=== PATIENT | female | born 1940 | race Caucasian/White ===

== ENCOUNTER → 2019-10-23 | Outpatient (CLI) | payer MEDICARE ==
[2019-10-23 11:14] LABS: Appearance,Urine Clear (Clear); Bilirubin,Urine Negative (Negative); Blood,Urine Negative (Negative); Color,Urine Yellow; Glucose,Urine (UA) Negative (Negative); Hyaline Casts,Urine 34 /lpf (0-2); Ketones,Urine Negative (Negative); Leukocyte Esterase,Urine Moderate (Negative); Mucus,Urine Many /hpf; Nitrite,Urine Negative (Negative); Protein,Urine Trace (Negative); RBC,Urine 2 /hpf (0-5); Specific Gravity,Urine 1.018 (1.001-1.035); Squamous Epithelial Cell,Urine 1 /hpf (0-4); WBC,Urine 9 /hpf (0-5)
[2019-10-23 11:46] LABS: HCT 40.4 % (34.0-46.0); MCH 29.4 pg (25.0-35.0); MCHC 32.1 g/dL (31.0-37.0); MCV 91.7 fL (80.0-100.0); Mean Platelet Volume 8.7; Platelet Count 276 k/uL (150-450); RBC 4.41 m/uL (3.80-5.40); RDW 12.7 % (11.5-15.5); WBC 5.8 k/uL (3.8-10.6)
[2019-10-23 11:52] LABS: Partial Thromboplastin Time 22.9 sec (22.0-30.0); Prothrombin Time 9.9 sec (9.0-12.0)
[2019-10-23 11:55] LABS: Albumin 4.2 g/dL (3.5-5.0); Calcium 9.5 mg/dL (8.4-10.2); Potassium 4.4 mmol/L (3.5-5.1); Total Bilirubin 0.8 mg/dL (0.2-1.3); Total Protein 7.1 g/dL (6.3-8.2)
== END | disposition home or self-care (01) ==
LOC: LABWHC1 09:54
PROVIDERS: ATTEND Orthopaedic Surgery Sports Medicine
DX: Z01.812 Encounter for preprocedural laboratory examination (principal); Z01.818 Encounter for other preprocedural examination
CPT/HCPCS: 36415; 80053; 81001; 85027; 85610; 85730; 87070

== ENCOUNTER 2019-11-06 07:37 | Day surgery (SDC) | payer MEDICARE ==
[2019-10-30 11:06] VITALS: BMI 28.6
[~2019-11-06 07:37] MED LIST: ACETAMINOPHEN TAB 500 MG TAB PO ONE; DEXAMETHASONE SOD PHOSPHATE 10 MG/ML 1 ML VIAL IV ONE; GABAPENTIN 300 MG CAP PO ONE; HYDROmorphone 0.5 MG/0.5 ML SYRINGE IVP PRN; MELOXICAM 7.5 MG TAB PO ONE; MIDAZOLAM 2 MG/2 ML VIAL IV PRN; ONDANSETRON 4 MG/2 ML VIAL IVP ONE; ROPIVACAINE 246.25 MG, EPINEPHrine 0.5 MG, KETOROLAC 30 MG, cloNIDine HCL/PF 80 MCG, WA... MISCELLANE ONE; TRANEXAMIC ACID 1,000 MG in SODIUM CHLORIDE 0.9% 100 ML IVPB ONE
[2019-11-06] MEDS ORDERED: LIDOCAINE 1% (10MG/ML) FOR IV START INTRADERMA ONE (08:10)
[2019-11-06] MEDS: LACTATED RINGERS 1,000 ML IV SCH ×4 (08:10→23:39)
[2019-11-06] MEDS ORDERED: MIDAZOLAM 2 MG/2 ML VIAL IVP ONE (08:19)
[2019-11-06] MEDS ORDERED: TRANEXAMIC ACID 1,000 MG/10 ML VIAL ONE (09:13)
[2019-11-06] MEDS ORDERED: LIDOCAINE 1% INJ 10MG/ML (20 ML MDV) ONE (09:13)
[2019-11-06] MEDS ORDERED: SUCCINYLCHOLINE CHLORIDE 100 MG/5 ML SYR IV ONE (09:13)
[2019-11-06] MEDS ORDERED: HYDROmorphone (PF) 1 MG/ML ONE (09:13)
[2019-11-06] MEDS ORDERED: SODIUM CHLORIDE 0.9% 100 ML BAG ONE (09:13)
[2019-11-06] MEDS ORDERED: ROPIVACAINE 5 MG/ML 30 ML VIAL ONE (09:13)
[2019-11-06] MEDS ORDERED: PROPOFOL 10 MG/ML 20 ML VIAL IV ONE (09:13)
[2019-11-06] MEDS ORDERED: DEXAMETHASONE SOD PHOSPHATE 4 MG/ML 1 ML VIAL ONE (09:13)
[2019-11-06] MEDS ORDERED: MIDAZOLAM 2 MG/2 ML VIAL ONE (09:13)
[2019-11-06] MEDS ORDERED: fentaNYL (PF) 50 MCG/ML 2 ML AMP ONE (09:13)
[2019-11-06] MEDS ORDERED: ceFAZolin 3,000 MG in SODIUM CHLORIDE 0.9% IRRIGATIO 3,000 ML IRRIGATION ONE (09:18)
[2019-11-06] MEDS ORDERED: MAGNESIUM HYDROXIDE 2,400 MG/10 ML CUP PO PRN (11:05)
[2019-11-06] MEDS ORDERED: HYDROmorphone 0.5 MG/0.5 ML SYRINGE IVP PRN ×3 (11:05)
[2019-11-06] MEDS ORDERED: diazePAM 5 MG TAB PO PRN (11:05)
[2019-11-06] MEDS ORDERED: TEMAZEPAM 15 MG CAP PO PRN (11:05)
[2019-11-06] MEDS ORDERED: HYDROcodone/APAP 5-325MG 1 EACH TAB PO PRN (11:05)
[2019-11-06] MEDS ORDERED: NALOXONE 0.4 MG/ML 1 ML VIAL IV PRN (11:05)
[2019-11-06] MEDS ORDERED: traMADol 50 MG TAB PO PRN (11:05)
[2019-11-06] MEDS ORDERED: ONDANSETRON 4 MG/2 ML VIAL IVP PRN (11:05)
[2019-11-06] MEDS ORDERED: bisacodyL 10 MG SUPP RECTAL PRN (11:05)
[2019-11-06] MEDS ORDERED: ACETAMINOPHEN TAB 325 MG TAB PO PRN (11:05)
[2019-11-06] MEDS ORDERED: NA PHOS,M-B/NA PHOS,DI-BA 133 ML ENEMA RECTAL PRN (11:05)
[2019-11-06] MEDS ORDERED: ROPIVACAINE 0.2%-NS ON-Q PUMP 1,090 MG, EMPTY PAIN BALL 1 EACH MISCELLANE PRN (11:11)
--- NOTE | 2019-11-06 11:46 | OP ---
OPERATIVE REPORT DATE OF PROCEDURE: 11/06/2019 SURGEON: Darrius Wan MD GARMENT INSPECTOR: Fabrice WARE. PREOPERATIVE DIAGNOSIS: Right knee osteoarthrosis. POSTOPERATIVE DIAGNOSIS: Right knee osteoarthrosis. OPERATION: Right total knee arthroplasty. ANESTHESIA: General endotracheal. ESTIMATED BLOOD LOSS: 100 mL. TOURNIQUET: Tourniquet time was 40 minutes at 250 mmHg. COMPLICATIONS: None apparent. DRAINS: None. DISPOSITION: Postanesthesia care unit. INDICATIONS: Cassidy is a very pleasant 79-year-old female with longstanding history of right knee pain. History and physical examination are consist with advanced right knee osteoarthrosis. She has been through significant nonoperative management up to this point. Further treatment options were discussed and she has decided to go forward with a right total knee arthroplasty. The risks of procedure were discussed with her in detail. These risks include, but are not limited to risk of infection, nerve damage, bleeding, pain, and a small risk of deep vein thrombosis which could lead to fatal pulmonary embolism. There is also risk of loosening of the implant which could require revision operation. The patient understands these risks. All her questions were answered to her satisfaction. An appropriate informed consent was obtained. DESCRIPTION OF PROCEDURE: Patient identified in the preoperative holding area. Surgical site was marked by both the patient and myself. She was given 2 g of Ancef IV for prophylactic purposes. She was then transferred to the operative suite. She was placed supine on the operative table. General anesthetic was then administered and dosed per the Anesthesia Department without apparent complication. Examination under anesthesia was then performed. She was 2-3 degrees shy of full extension. She had 100 degrees of flexion. The medial collateral ligament, lateral collateral ligament, posterior cruciate ligaments were stable. Tourniquet was then placed high on the right upper thigh well-padded in preparation for surgery. The patient's right lower extremity than prepped and draped in usual sterile fashion. Standard surgical pause undertaken to ensure that we were operating the correct site and that appropriate preoperative antibiotics have been given. All staff in the room were in agreement and we proceeded. The outlines of the patella marked with surgical pen. A planned 12 cm vertical incision centered over the patella was marked with surgical pen. The leg was exsanguinated with Esmarch dressing. The knee was then flexed and tourniquet was inflated to 250 mmHg. The total tourniquet time for the procedure was 40 minutes. Incision was then made with a 10 blade scalpel. Dissection was carried down sharply overlying fascia. Great care was taken to minimize the skin flaps. The knee was then exposed using a standard medial parapatellar approach. A small cuff of quadriceps tendon was then left for suturing. She was in a bit of varus preoperatively. A standard medial release was then made. Superficial medial collateral ligament dissected off the bone around the posterior aspect of the proximal tibia. The medial meniscus was then excised as well. The lateral meniscus was also released anteriorly. The leg was then externally rotated. The patella was everted. The knee was flexed. The retractors then placed to protect the collateral ligaments. I then proceeded to remove the infrapatellar fat pad. This was excised sharply tangentially with fibers of the patellar tendon. I then proceeded to remove peripheral osteophytes. This is done with a rongeur. I then proceeded with the distal femoral resection. She did have near full extension. A planned 9 mm resection was then done. The femoral canal was then entered in midline. The femur approximately 10 mm anterior to the origin of posterior cruciate ligament. The mckinley was then advanced down the center of the femur and placed intramedullary. Based on the preoperative radiographs, the angle between the anatomic and mechanical axis of the femur was approximately 4-5 degrees. The valgus angle of the distal femoral cutting guide was then set at 4 degrees for the right knee. This femoral cutting guide was then advanced over the intramedullary mckinley. This was seated firmly against the femur. I then as mentioned, planned to take 9 mm off the distal femur. The cutting block was then secured onto the femur with pins. The jig was then removed. The distal femoral cut was made through the slot of the block. The pins were then removed. The distal femoral cutting block was removed. The accuracy of this distal femoral cuts was checked with 2 flat bars. I then proceeded with femoral sizing. The posterior referencing sizing guide was held firmly against the resected distal surface of the femur. The posterior condyles were resting on the posterior plane of the guide. The sizing stylus was then placed onto the anterior femur. The size was measured as a size 8. I then assessed for femoral rotation. The plan was for 3 degrees external rotation. Three degrees external rotation was placed onto the jig. These holes were then marked. I then confirmed the rotation by 3 separate methods. This was done using epicondylar axis as well as Whitesides line and posterior referencing. It seemed that the external rotation was proper. I then went forward placing the femoral cutting block. This was placed over the previously placed pin holes. The Leon wing was then placed on the anterior slots to ensure that we would not notch the anterior femur with the anterior femoral cut. I then proceeded with the anterior femoral cut. This was flush with the anterior cortex of the femur. The posterior cuts were then made followed by the anterior chamfer cut, then the posterior chamfer cut. The cutting block was then removed. Throughout the resection, the collateral ligaments were protected with retractors. I then placed a trial size 8 femur. It was slightly wide mediolateral but the narrow fit very nicely and it fit flush with the distal end of the femur. The drill holes were then made. I then proceed with the tibial cut. I planned for cruciate retaining knee. The guide was placed and set for varus valgus and for slope. The height was set for approximate 2 mm resection from the medial tibial plateau which was the lower side. I was happy with the alignment and the amount of resection. The cutting block was then pinned to the proximal tibia. The alignment mckinley was removed and the proximal tibia was resected with a reciprocating saw. This was done with retractors protecting the collateral ligaments as well as the posterior cruciate ligament. I then proceeded to evaluate the flexion and extension gaps. A 10 mm block was then placed. The flexion and extension gaps were equal. I then proceeded with resection of posterior osteophytes. Very minimal posterior osteophytes. This is done using a curved osteotome. This resected the posterior osteophytes and posterior capsule stripping was done off the posterior aspect of the femur. The osteophytes were then removed. I then proceeded with resection of the patella. The thickness of patella was measured using the caliper. The thickness was 22 mm. The thickness of the anticipated patellar dome was taken into account. Resection was then performed and confirmed to be equal in 4 quadrants using a caliper. Approximately 14 mm of bone remained after resection. A 29 x 8 standard patellar trial was then placed. The holes drilled. The trial was then placed. I then proceeded with sizing the tibial plate. A size D tibial plate fit very nicely. I then placed the trial femur the tibial tray and patellar button. A 10 mm trial tibial insert was also placed. The components fit very nicely. She had full extension and flexion. The extension and flexion gaps were equal and stable to both varus and valgus stress. The patella tracked appropriately. The tibial tray rotation was then marked with a Bovie. This was externally rotated properly. I then proceeded with tibial preparation. First drilled the femoral holes, removed the femoral component. The tibial tray was then set for proper external rotation as well as mediolateral placement onto the tibia. It was then pinned into place. I then proceeded with punching the keel. I then decided to proceed with cementing of all of our components. The knee was thoroughly irrigated with sterile saline solution via pulse lavage. The lateral geniculate artery was identified and cauterized. All blood was removed from the bone of the tibia, femur, and patella with pulse lavage. I then proceeded with cementing. Two packs of antibiotic bone cement were prepared on the back table by the senior maintenance technician. I then proceeded with cementing the tibia first. The cement was impacted in the keel as well as deeply seated in the bone. A second coat of cement was then placed. The tibia was then impacted into place. Excess cement was removed with Felisa's and Joker's. I then proceeded with cementing of the femoral component. The femoral component was also cemented using standard technique. Excess cement was removed. A 10 mm trial insert was also placed. It was then placed into the knee. It was brought into full extension with a constant axial load placed until the cement had hardened. The patellar component was then cemented. This was held firmly with a compressive device until the cement had dried. When the cement had dried, the knee was taken out of extension. All excess cement was removed from around the prosthesis. I then trialed the knee with a 10 mm insert. Flexion extension gaps were appropriate. The knee was stable. It came into full extension. I decided to go for the 10 mm cross-linked cruciate-retaining tibial insert. Polyethylene was then placed onto the tibial tray and locked into place. The knee was then reduced. The knee was again further irrigated with sterile saline solution with antibiotic added. The tourniquet was then deflated. Total tourniquet time for the procedure was 40 minutes at 250 mmHg. Final components were Abril Persona size 8 narrow, cruciate-retaining femoral component size D tibial tray, a 10 mm medial congruent cruciate-retaining polyethylene insert, and a 29 x 8 patella. I then proceeded with closure. Again, the knee was thoroughly irrigated. The quadriceps tendon and the medial retinaculum were reapproximated with #2 Ethibond suture. The extensor mechanism was then closed with a running #2 Quill suture. Subcutaneous tissues were closed with 2-0 Vicryl interrupted suture. The skin was closed with a running 3-0 Quill suture. Dermabond was applied to the incision. Sterile compressive dressing was then applied. All sponge and needle counts were deemed correct prior to closure. The patient tolerated procedure without apparent complication. She was transferred to the recovery room in stable condition. MMODL / IJN: [id number] /
--- NOTE | 2019-11-06 11:55 | XR ---
EXAMINATION TYPE: XR knee limited RT DATE OF EXAM: 11/06/2019 COMPARISON: NONE TECHNIQUE: Two views submitted HISTORY: Post op FINDINGS: There is a prosthetic knee in near anatomic alignment. There is soft tissue edema and emphysema. IMPRESSION: 1. Postoperative change. Appears in near-anatomic alignment
--- NOTE | 2019-11-06 15:16 | P.CONS ---
History of Present Illness - Reason for Consult Consult date: 11/06/19 Medical management Requesting physician: Darrius Wan - Chief Complaint Right knee surgery - History of Present Illness Consultation: This is a pleasant 79-year-old patient of Dr. Gracia. Chronic stable medical conditions include GERD, hiatal hernia, hypertension, hyperlipidemia, osteoarthritis especially of the left leg joints. Patient today underwent right total knee arthroplasty. Postprocedure pain is controlled. No nausea vomiting. No chest pain or shortness of breath. Denies any cardiac history. Sitting up in bed. Review of systems: GEN.: None EYES: None HEENT: None NECK: None RESPIRATORY: None CARDIOVASCULAR: Occasional heartburn GASTROINTESTINAL: None GENITOURINARY: None MUSCULOSKELETAL: Joint pains] LYMPHATICS: None HEMATOLOGICAL: None PSYCHIATRY: None NEUROLOGICAL: None Past medical history to include: GERD, hiatal hernia, hypertension, hyperlipidemia, osteoarthritis of the left leg Social history: Does not smoke. Alcohol occasionally. Physical examination: VITAL SIGNS: Afebrile, 69, 16, 107/54, 92% on 2 L GENERAL: BMI 28.4, laying in bed, awake comfortable. EYES: Pupils equal. Conjunctiva normal. HEENT: External appearance of nose and ears normal, oral cavity grossly normal. NECK: JVD not raised; masses not palpable. HEART: First and second heart sounds are normal; no edema. LUNGS: Respiratory rate normal; clear to auscultation MUSCULAR skeletal: Dressing over the right knee evidence of OA. ABDOMEN: Soft, nontender, liver spleen not palpable, no masses palpable. PSYCH: Alert and oriented x3; mood and affect normal. NEUROLOGICAL: Cranial nerves grossly intact; no facial asymmetry, power and sensation grossly intact. LYMPHATICS: No lymph nodes palpable in the axilla and neck INVESTIGATIONS, reviewed in the clinical context: Labs from October 22: White count 5.8 hemoglobin 13 potassium 4.4 creatinine 0.94 Assessment: -Right total knee arthroplasty -Primary osteoarthritis -Essential hypertension -Hyperlipidemia -Hiatal hernia -GERD Plan: Patient is aspirin for DVT prophylaxis per Dr. Wan. Home medications to be resumed. Pain control in place. Care was discussed with the patient question also. Thank you Dr. Wan Past Medical History Past Medical History: Chest Pain / Angina, GERD/Reflux, Hyperlipidemia, Hypertension, Osteoarthritis (OA) Additional Past Medical History / Comment(s): Was diagnosed with a Hiatal Hernia, but has never had any issues with it. History of Any Multi-Drug Resistant Organisms: None Reported Past Surgical History: Cholecystectomy, Hysterectomy, Orthopedic Surgery, Tonsillectomy Additional Past Surgical History / Comment(s): Left wrist ganglion cyst removed. Past Anesthesia/Blood Transfusion Reactions: Motion Sickness, Postoperative Nausea & Vomiting (PONV) Additional Past Anesthesia/Blood Transfusion Reaction / Comm: Mild PONV X1. Motion sickness as a child. Past Psychological History: No Psychological Hx Reported Smoking Status: Never smoker Past Alcohol Use History: Occasional Past Drug Use History: None Reported - Past Family History Mother Family Medical History: Cancer Medications and Allergies Home Medications Medication Instructions Recorded Confirmed Type Aspirin 81 mg PO DAILY 02/18/14 10/30/19 History Pravastatin Sodium [Pravachol] 80 mg PO DAILY 02/18/14 10/30/19 History Verapamil HCl [Verapamil ER] 180 mg PO BID 02/18/14 10/30/19 History Escitalopram [Lexapro] 20 mg PO QAM 10/30/19 10/30/19 History Multivitamins, Thera [Multivitamin 1 tab PO DAILY 10/30/19 10/30/19 History (formulary)] Allergies Allergy/AdvReac Type Severity Reaction Status Date / Time No Known Allergies Allergy Verified 11/06/19 07:58 Physical Exam Vitals: Vital Signs Temp Pulse Pulse Resp BP Pulse Ox 11/06/19 13:04 67 16 109/57 95 11/06/19 12:30 69 16 107/54 92 L 11/06/19 12:18 72 16 117/59 98 11/06/19 12:03 72 16 128/65 98 11/06/19 11:48 69 16 131/66 98 11/06/19 11:33 72 16 137/65 97 11/06/19 11:18 71 16 145/67 96 11/06/19 11:01 97.4 F L 76 12 151/70 97 11/06/19 08:35 75 16 110/78 93 L 11/06/19 08:15 98.0 F 84 16 128/80 96 Intake and Output 11/06/19 11/06/19 11/06/19 06:59 14:59 22:59 Intake Total 751 Output Total 100 Balance 651 Intake: IV 751 Output: Estimated Blood Loss 100 Other: Weight 77.4 kg
[2019-11-06] MEDS: SENNOSIDES-DOCUSATE SODIUM 1 EACH TAB PO SCH (20:15)
[2019-11-06] MEDS: VERAPAMIL SR 180 MG TABLET.ER PO SCH (20:15)
[2019-11-06] MEDS: ASPIRIN 81 MG PO SCH (20:15)
[2019-11-06] MEDS: HYDROcodone/APAP 10-325MG 1 EACH TAB PO PRN (23:39)
[2019-11-07] MEDS: LACTATED RINGERS 1,000 ML IV SCH ×3 (05:22→15:15)
--- NOTE | 2019-11-07 07:08 | P.PN ---
Progress Note - Text 11/07/19 700am 79-year-old female status post total knee replacement. Patient seen and evaluated this morning for postop pain control, patient has an On-Q pump. Patient has a VAS of 4, no complaint of nausea vomiting. Plan to continue On-Q pump infusion
--- NOTE | 2019-11-07 07:09 | P.ANPRN ---
Procedure Note - Anesthesia - Nerve Block Performed Right Adductor Canal Infusion Time Out Performed: Yes Date of Procedure: 11/06/19 Procedure Start Time: : Procedure Stop Time: Location of Patient: PreOp Indication: Acute Post-Operative Pain, Requested by Surgeon Sedation Type: Sedate with meaningful contact maintained Preparation: Sterile Prep, Sterile Dressing Position: Supine Catheter: Indwelling Needle Types: Pajunk Needle Gauge: 21 Ultrasound used to visualize needle placement: Yes Ultrasound used to observe medication spread: Yes Blood Aspirated: No Pain Paresthesia on Injection Noted: No Resistance on Injection: Normal Image Stored and Saved: Yes Events: Uneventful and Well Tolerated (Ropivacaine 0.5% 20 mL plus dexamethasone 4mg)
[2019-11-07 07:43] LABS: Basophils % (A) 0 %; Eosinophils % (A) 0 %; HCT 33.4 % (34.0-46.0); HGB 10.6 gm/dL (11.4-16.0); Lymphocytes # (A) 1.1 k/uL (1.0-4.8); Lymphocytes % (A) 9 %; MCH 29.3 pg (25.0-35.0); MCHC 31.8 g/dL (31.0-37.0); MCV 92.2 fL (80.0-100.0); Mean Platelet Volume 7.9; Monocytes # (A) 1.1 k/uL (0-1.0); Monocytes % (A) 9 %; Neutrophils # (A) 9.7 k/uL (1.3-7.7); Neutrophils % (A) 81 %; Platelet Count 205 k/uL (150-450); RBC 3.62 m/uL (3.80-5.40); RDW 12.9 % (11.5-15.5)
[2019-11-07] MEDS: PRAVASTATIN SODIUM 80 MG TAB PO SCH (08:01)
[2019-11-07] MEDS: ASPIRIN 81 MG PO SCH ×2 (08:01→21:13)
[2019-11-07] MEDS: ESCITALOPRAM 20 MG TAB PO SCH (08:01)
[2019-11-07] MEDS: VERAPAMIL SR 180 MG TABLET.ER PO SCH ×2 (08:02→21:13)
[2019-11-07] MEDS: HYDROcodone/APAP 10-325MG 1 EACH TAB PO PRN ×3 (08:04→21:13)
[2019-11-07] MEDS ORDERED: MULTIVITAMINS, THERA 1 EACH TAB PO SCH (09:00)
[2019-11-07] MEDS: MULTIVITAMINS, THERA 1 EACH TAB PO SCH (12:07)
--- NOTE | 2019-11-07 12:09 | P.PN ---
Subjective Progress Note Date: 11/07/19 Principal diagnosis: RTKA Patient is seen at bedside this morning. She is postop day #1 from right total knee arthroplasty. She has pain at the surgical site as expected but denies any new complaints. She denies numbness, tingling or calf pain. Review of systems is negative for fever, chills, chest pain, shortness of breath or other Objective - Vital Signs Vital signs: Vital Signs Temp 98 F 11/07/19 07:55 Pulse 66 11/07/19 08:00 Resp 18 11/07/19 08:00 BP 114/51 11/07/19 07:55 Pulse Ox 94 L 11/07/19 07:55 Intake & Output 11/06/19 11/07/19 11/07/19 18:59 06:59 18:59 Intake Total 751 160 Output Total 100 Balance 651 160 Weight 77.4 kg Intake: IV 751 Intake, IV Titration 60 Amount Lactated Ringers 1,000 ml 60 @ 20 mls/hr IV .Q24H GOPAL Rx#:[id number] Oral 100 Output: Estimated Blood Loss 100 Other: # Voids 1 2 2 - Exam Inspection reveals a benign surgical wound. There is no active bleeding or drainage. Neurovascular status is intact throughout the lower extremity with motor and sensation fully intact. Calf is soft and nontender. 2+ dorsalis ped is pulse and less than 2 second cap refill is present. - Constitutional General appearance: Present: no acute distress - Labs CBC & Chem 7: 11/07/19 07:04 Labs: Abnormal Lab Results - Last 24 Hours (Table) 11/07/19 Range/Units 07:04 WBC 12.0 H (3.8-10.6) k/uL RBC 3.62 L (3.80-5.40) m/uL Hgb 10.6 L (11.4-16.0) gm/dL Hct 33.4 L (34.0-46.0) % Neutrophils # 9.7 H (1.3-7.7) k/uL Monocytes # 1.1 H (0-1.0) k/uL Assessment and Plan (1) Status post total right knee replacement Narrative/Plan: She will continue with routine postop orthopedic protocol including pain management, wound care, PT, DVT prophylaxis and medical management. Expect that she will transfer to home tomorrow Current Visit: Yes Status: Acute Priority: Medium Code(s): Z96.651 - PRESENCE OF RIGHT ARTIFICIAL KNEE JOINT SNOMED Code(s): 8802839611654 Time with Patient: Less than 30
[2019-11-07] MEDS: SENNOSIDES-DOCUSATE SODIUM 1 EACH TAB PO SCH (21:13)
--- NOTE | 2019-11-07 22:02 | P.PN ---
Progress Note - Text Progress Note Date: 11/07/19 - Chief Complaint Right knee surgery - History of Present Illness Consultation: This is a pleasant 79-year-old patient of Dr. Gracia. Chronic stable medical conditions include GERD, hiatal hernia, hypertension, hyperlipidemia, osteoarthritis especially of the left leg joints. Patient today underwent right total knee arthroplasty. Today-laying in bed. Tired. Did work with therapy. No nausea vomiting. Review of systems: Was done for constitutional, cardiovascular, GI, pulmonary. Musculoskeletal relevant finding as above Active Medications Acetaminophen (Acetaminophen Tab 325 Mg Tab) 650 mg PO Q4HR PRN PRN Reason: Pain Scale 1 to 5 Hydrocodone Bitart/Acetaminophen (Hydrocodone/Apap 5-325mg 1 Each Tab) 1 each PO Q6HR PRN PRN Reason: Pain Scale 1 to 5 Hydrocodone Bitart/Acetaminophen (Hydrocodone/Apap 10-325mg 1 Each Tab) 1 each PO Q6H PRN PRN Reason: Pain Scale 6 to 10 Last Admin: 11/07/19 21:13 Dose: 1 each Documented by: Aspirin (Aspirin 81 Mg) 81 mg PO BID [facility] Last Admin: 11/07/19 21:13 Dose: 81 mg Documented by: Bisacodyl (Bisacodyl 10 Mg Supp) 10 mg RECTAL DAILY PRN PRN Reason: Constipation Ropivacaine 1,090 mg/ Bandage/ (Support Products 1 each) 0 mg MISCELLANE Q2H PRN PRN Reason: Breakthrough Pain Last Admin: 11/06/19 11:43 Dose: 1,090 mg Documented by: Diazepam (Diazepam 5 Mg Tab) 2.5 mg PO Q8HR PRN PRN Reason: Mild Spasms Escitalopram Oxalate (Escitalopram 20 Mg Tab) 20 mg PO QAM [facility] Last Admin: 11/07/19 08:01 Dose: 20 mg Documented by: Hydromorphone HCl (Hydromorphone 0.5 Mg/0.5 Ml Syringe) 0.125 mg IVP Q3HR PRN PRN Reason: Pain Scale 1 to 3 Hydromorphone HCl (Hydromorphone 0.5 Mg/0.5 Ml Syringe) 0.25 mg IVP Q3HR PRN PRN Reason: Pain Scale 4 to 6 Hydromorphone HCl (Hydromorphone 0.5 Mg/0.5 Ml Syringe) 0.5 mg IVP Q3HR PRN PRN Reason: Pain Scale 7 to 10 Lactated Ringer's (Lactated Ringers) 1,000 mls @ 20 mls/hr IV .Q24H [facility] Last Admin: 11/07/19 05:22 Dose: 20 mls/hr Documented by: Lactated Ringer's (Lactated Ringers) 1,000 mls @ 100 mls/hr IV .Q10H [facility] Last Admin: 11/07/19 15:15 Dose: Not Given Documented by: Magnesium Hydroxide (Magnesium Hydroxide 2,400 Mg/10 Ml Cup) 2,400 mg PO DAILY PRN PRN Reason: Constipation Multivitamins (Multivitamins, Thera 1 Each Tab) 1 each PO DAILY@1200 [facility] Last Admin: 11/07/19 12:07 Dose: 1 each Documented by: Naloxone HCl (Naloxone 0.4 Mg/Ml 1 Ml Vial) 0.2 mg IV Q2M PRN PRN Reason: Opioid Reversal Ondansetron HCl (Ondansetron 4 Mg/2 Ml Vial) 4 mg IVP Q8HR PRN PRN Reason: Nausea And Vomiting Pravastatin Sodium (Pravastatin Sodium 80 Mg Tab) 80 mg PO DAILY [facility] Last Admin: 11/07/19 08:01 Dose: 80 mg Documented by: Senna/Docusate Sodium (Sennosides-Docusate Sodium 1 Each Tab) 2 each PO HS [facility] Last Admin: 11/07/19 21:13 Dose: 2 each Documented by: Sodium Biphosphate/Sodium Phosphate (Na Phos,M-B/Na Phos,Di-Ba 133 Ml Enema) 133 ml RECTAL DAILY PRN PRN Reason: Constipation Temazepam (Temazepam 15 Mg Cap) 15 mg PO HS PRN PRN Reason: Insomnia Tramadol HCl (Tramadol 50 Mg Tab) 50 mg PO Q6HR PRN PRN Reason: Pain Scale 1 to 5 Verapamil HCl (Verapamil Sr 180 Mg Tablet.Er) 180 mg PO BID [facility] Last Admin: 11/07/19 21:13 Dose: 180 mg Documented by: Physical examination: VITAL SIGNS: 97.5, 75, 16, 112/64, 93% on room air GENERAL:, laying in bed, awake comfortable. EYES: Pupils equal. Conjunctiva normal. NECK: JVD not raised; masses not palpable. HEART: First and second heart sounds are normal; no edema. LUNGS: Respiratory rate normal; clear to auscultation MUSCULAR skeletal: Dressing over the right knee evidence of OA. ABDOMEN: Soft, nontender, liver spleen not palpable, no masses palpable. PSYCH: Alert and oriented x3; mood and affect normal. INVESTIGATIONS, reviewed in the clinical context: White count 12 hemoglobin 10.6 Labs from October 22: White count 5.8 hemoglobin 13 potassium 4.4 creatinine 0.94 Assessment: -Right total knee arthroplasty -Primary osteoarthritis -Essential hypertension -Hyperlipidemia -Hiatal hernia -GERD -Acute postprocedure blood loss anemia, expected from surgery -Leukocytosis reactive from surgery. No clinical evidence of infection Plan: Patient doing well. Discussed with the patient. Started iron supplementation. Other medications to continue. Thank you Dr. Wan
[2019-11-08] MEDS: LACTATED RINGERS 1,000 ML IV SCH ×2 (04:11→06:03)
[2019-11-08] MEDS: HYDROcodone/APAP 10-325MG 1 EACH TAB PO PRN (06:03)
--- NOTE | 2019-11-08 07:12 | P.PN ---
Progress Note - Text Progress Note Date: 11/08/19 Postoperative day # 2 status post total knee arthroplasty, and adductor canal catheter placed for postoperative analgesia, currently at ropivacaine 0.2% 8 mL per hour and continuous infusion, visual analogue scale is 6/10, depending controlled with oral pain medication [place] 7.5/325 when necessary. Assessment and plan= Acute postoperative pain, adductor canal catheter for pain control, we'll continue the same management.
[2019-11-08] MEDS ORDERED: FERROUS SULFATE 325 MG TAB PO SCH (07:30)
[2019-11-08] MEDS: VERAPAMIL SR 180 MG TABLET.ER PO SCH (07:53)
[2019-11-08] MEDS: ESCITALOPRAM 20 MG TAB PO SCH (07:53)
[2019-11-08] MEDS: PRAVASTATIN SODIUM 80 MG TAB PO SCH (07:53)
[2019-11-08] MEDS: ASPIRIN 81 MG PO SCH (07:53)
[2019-11-08 08:20] VITALS: BP 131/78; PULSE 74; RESP 16; TEMP 98.3
[2019-11-08] MEDS ORDERED: HYDROcodone/APAP 10-325MG 1 EACH TAB PO PRN (09:48)
--- NOTE | 2019-11-08 09:58 | P.DS ---
Providers Expected date of discharge: 11/08/19 Attending physician: Darrius Wan Consults: 11/06/19 11:05 Consult Physician Routine Consulting Provider: Peter Wynne Consult Reason/Comments: post op medical management Do you want consulting provider notified?: Yes Primary care physician: Junior Stephens - Discharge Diagnosis(es) (1) Primary osteoarthritis of right knee Current Visit: Yes Status: Acute (2) Status post total right knee replacement Current Visit: Yes Status: Acute Priority: Medium (3) Hypertension Current Visit: No Status: Acute Hospital Course: This is a 79-year-old female last seen in our office with complaints of right knee pain. Patient has known history of degenerative arthritis of the right knee and presented to discuss options. After discussion and consideration, patient elected to proceed with a total knee arthroplasty of the right knee. The patient was seen preoperatively and medically cleared for surgery by her primary care physician. The patient was admitted to [facility] and underwent right total knee arthroplasty on 11/06/[address] Wan. The procedure was performed without complications or sequelae. The patient has done well postoperatively. The patient was seen and evaluated at bedside today and denies any new complaints. Pain is reasonably controlled. Dressing is clean dry and intact. Incision looks fine with no erythema or active drainage. Calf is soft and nontender. The patient has full foot and ankle motion without difficulty. Patient's right lower extremity is neurovascular intact. Patient is orthopedically stable for discharge to home today. Pertinent Studies: Laboratory Tests 11/07/19 07:04 WBC 12.0 H RBC 3.62 L Hgb 10.6 L Hct 33.4 L Neutrophils # 9.7 H Monocytes # 1.1 H Patient Condition at Discharge: Stable Plan - Discharge Summary Discharge Rx Participant: Yes New Discharge Prescriptions: New Aspirin [Adult Low Dose Aspirin EC] 81 mg PO BID #60 tablet. HYDROcodone/APAP 10-325MG [[place] 10-325] 1 tab PO Q4-6H PRN #32 tab PRN Reason: Pain No Action Aspirin 81 mg PO DAILY Verapamil HCl [Verapamil ER] 180 mg PO BID Pravastatin Sodium [Pravachol] 80 mg PO DAILY Multivitamins, Thera [Multivitamin (formulary)] 1 tab PO DAILY Escitalopram [Lexapro] 20 mg PO QAM Discharge Medication List Aspirin 81 mg PO DAILY 02/18/14 [History] Pravastatin Sodium [Pravachol] 80 mg PO DAILY 02/18/14 [History] Verapamil HCl [Verapamil ER] 180 mg PO BID 02/18/14 [History] Escitalopram [Lexapro] 20 mg PO QAM 10/30/19 [History] Multivitamins, Thera [Multivitamin (formulary)] 1 tab PO DAILY 10/30/19 [History] Aspirin [Adult Low Dose Aspirin EC] 81 mg PO BID #60 tablet. 11/07/19 [Rx] HYDROcodone/APAP 10-325MG [[place] 10-325] 1 tab PO Q4-6H PRN #32 tab 11/08/19 [Rx] Follow up Appointment(s)/Referral(s): [facility], [NON-STAFF] - As Needed Darrius Wan MD [STAFF PHYSICIAN] - 10 Days Activity/Diet/Wound Care/Special Instructions: Keep wound clean and dry Take meds as directed Follow-up with Dr. Wan in office Weight bear as tolerated May shower in 3 days if no bleeding Discharge Disposition: HOME WITH HOME HEALTH SERVICES
[2019-11-08] MEDS: MULTIVITAMINS, THERA 1 EACH TAB PO SCH (11:57)
--- NOTE | 2019-11-08 22:17 | P.PN ---
Progress Note - Text Progress Note Date: 11/08/19 - Chief Complaint Right knee surgery Consultation: This is a pleasant 79-year-old patient of Dr. Gracia. Chronic stable medical conditions include GERD, hiatal hernia, hypertension, hyperlipidemia, osteoarthritis especially of the left leg joints. Patient today underwent right total knee arthroplasty. Today-feeling well. No new issues. Hemoglobin dropped. Tolerating a diet. Discussed with the patient. Iron supplementation to be started. Review of systems: Was done for constitutional, cardiovascular, GI, pulmonary. Musculoskeletal relevant finding as above Current medications reviewed in electronic records Physical examination: VITAL SIGNS: 98.3, 74, 16, 131 with 78, 92% room air GENERAL:, Sitting up, comfortable. EYES: Pupils equal. Conjunctiva normal. NECK: JVD not raised; masses not palpable. HEART: First and second heart sounds are normal; no edema. LUNGS: Respiratory rate normal; clear to auscultation MUSCULAR skeletal: Dressing over the right knee evidence of OA. ABDOMEN: Soft, nontender, liver spleen not palpable, no masses palpable. PSYCH: Alert and oriented x3; mood and affect normal. INVESTIGATIONS, reviewed in the clinical context: White count 12 hemoglobin 10.6 Labs from October 22: White count 5.8 hemoglobin 13 potassium 4.4 creatinine 0.94 Assessment: -Right total knee arthroplasty -Primary osteoarthritis -Essential hypertension -Hyperlipidemia -Hiatal hernia -GERD -Acute postprocedure blood loss anemia, expected from surgery -Leukocytosis reactive from surgery. No clinical evidence of infection Plan: Discussed with the patient. Questions answered. Follow-up with PCP. Thank you Dr. Wan
== END 2019-11-08 12:10 | disposition home health service (06) ==
LOC: OR 07:37 → 4SSUR 10:57 → OR 11-07 15:25 → 4SSUR 11-07 15:25 → OR 11-08 12:10
PROVIDERS: ATTEND Orthopaedic Surgery Sports Medicine
DX: M17.0 Bilateral primary osteoarthritis of knee (principal); D72.829 Elevated white blood cell count, unspecified; D62 Acute posthemorrhagic anemia; I10 Essential (primary) hypertension; E78.5 Hyperlipidemia, unspecified; H91.90 Unspecified hearing loss, unspecified ear; F32.9 Major depressive disorder, single episode, unspecified; K21.9 Gastro-esophageal reflux disease without esophagitis; K44.9 Diaphragmatic hernia without obstruction or gangrene; Z97.3 Presence of spectacles and contact lenses; Z90.710 Acquired absence of both cervix and uterus; Z79.82 Long term (current) use of aspirin; Z79.899 Other long term (current) drug therapy; Z90.49 Acquired absence of other specified parts of digestive tract; Z98.890 Other specified postprocedural states
CPT/HCPCS: 97116; 97110; 97161; 85025; 88300; 73560; 27447; 64448; C1776; C1713; J2250; J0171; J1100 ×2; J0690 ×2; J2405; J2001; J3010; J1885; J1170 ×2; J2795 ×2; J0330; J2704; J0735

== ENCOUNTER → 2021-06-30 | Outpatient (CLI) | payer MEDICARE ==
[2021-06-30 12:43] LABS: INR 0.9 (<1.2); Partial Thromboplastin Time 23.4 sec (22.0-30.0); Prothrombin Time 10.4 sec (9.0-12.0)
[2021-06-30 17:52] LABS: HGB 12.3 g/dL (12.0-15.0); MCH 29.1 pg (27.0-32.0); MCHC 31.5 g/dL (32.0-37.0); MCV 92.2 fL (80.0-97.0); Mean Platelet Volume 10.8 fL (9.5-12.2); NRBC Per 100 WBC 0 /100 WBCS (0.0-0.0); Platelet Count 252 X 10*3/uL (140-440); RBC 4.23 X 10*6/uL (4.10-5.20); RDW 13.2 % (11.5-14.5); WBC 5.13 X 10*3/uL (4.50-10.00)
[2021-06-30 17:55] LABS: African American GFR (CKD) 77.4 (60.0-200.0); Albumin 4.1 g/dL (3.8-4.9); Albumin/Globulin Ratio 1.42 (1.60-3.17); Anion Gap 9.7 mmol/L (10.00-18.00); BUN/Creat Ratio 23.19 Ratio (12.00-20.00); Blood Urea Nitrogen 19.2 mg/dL (9.0-27.0); Calcium 9.2 mg/dL (8.7-10.3); Carbon Dioxide 24.1 mmol/L (20.0-27.5); Globulin 2.9 g/dL (1.6-3.3); Non-African American GFR(CKD) 66.8 (60.0-200.0); Potassium 4.5 mmol/L (3.5-5.5); Total Bilirubin 0.4 mg/dL (0.30-1.20)
[2021-06-30 19:36] LABS: Appearance,Urine Clear (Clear); Bilirubin,Urine Negative (Negative); Blood,Urine Negative (Negative); Color,Urine Dark Yellow (Yellow); Ketones,Urine Trace mg/dL (Negative); Nitrite,Urine Negative (Negative); Specific Gravity,Urine 1.024 (1.001-1.030)
[2021-06-30 19:43] LABS: Bacteria,Urine None Seen /HPF (None Seen)
== END | disposition home or self-care (01) ==
LOC: LABPAT 09:57
PROVIDERS: ATTEND Orthopaedic Surgery Sports Medicine
DX: Z01.812 Encounter for preprocedural laboratory examination (principal); M17.12 Unilateral primary osteoarthritis, left knee
CPT/HCPCS: 36415; 80053; 81001; 85027; 85610; 85730; 87070; 93005

== ENCOUNTER 2021-07-14 07:51 | Inpatient (IN) | payer MEDICARE ==
[2021-07-12 13:21] VITALS: BMI 28.6
[~2021-07-14 07:51] MED LIST changes: -ACETAMINOPHEN TAB 500 MG TAB PO ONE; +ACETAMINOPHEN TAB 500 MG TAB PO PRN; -DEXAMETHASONE SOD PHOSPHATE 10 MG/ML 1 ML VIAL IV ONE; -GABAPENTIN 300 MG CAP PO ONE; +GABAPENTIN 300 MG CAP PO PRN; -HYDROmorphone 0.5 MG/0.5 ML SYRINGE IVP PRN; -MELOXICAM 7.5 MG TAB PO ONE; +MELOXICAM 7.5 MG TAB PO PRN; -MIDAZOLAM 2 MG/2 ML VIAL IV PRN; -ONDANSETRON 4 MG/2 ML VIAL IVP ONE; +ONDANSETRON 4 MG/2 ML VIAL IVP PRN; -ROPIVACAINE 246.25 MG, EPINEPHrine 0.5 MG, KETOROLAC 30 MG, cloNIDine HCL/PF 80 MCG, WA... MISCELLANE ONE; -TRANEXAMIC ACID 1,000 MG in SODIUM CHLORIDE 0.9% 100 ML IVPB ONE; +TRANEXAMIC ACID IN NACL,ISO-OS 1,000 MG in SALINE 1 100ML.BAG IVPB PRN
[2021-07-14] MEDS ORDERED: LACTATED RINGERS 1,000 ML IV ONE (08:12)
[2021-07-14] MEDS ORDERED: MIDAZOLAM 2 MG/2 ML VIAL IV PRN (08:18)
[2021-07-14] MEDS ORDERED: LIDOCAINE 1% (10MG/ML) FOR IV START INTRADERMA PRN (08:18)
[2021-07-14] MEDS ORDERED: ONDANSETRON 4 MG/2 ML VIAL IVP ONE (08:18)
[2021-07-14] MEDS ORDERED: LACTATED RINGERS 1,000 ML IV SCH (08:18)
[2021-07-14] MEDS ORDERED: DEXAMETHASONE SOD PHOSPHATE 4 MG/ML 1 ML VIAL IV ONE (08:18)
[2021-07-14] MEDS ORDERED: MIDAZOLAM 2 MG/2 ML VIAL IVP ONE (09:06)
[2021-07-14] MEDS ORDERED: fentaNYL (PF) 50 MCG/ML 2 ML AMP IVP ONE (09:06)
[2021-07-14] MEDS ORDERED: ceFAZolin 1,000 MG VIAL ONE (10:04)
[2021-07-14] MEDS ORDERED: SODIUM CHLORIDE 0.9% 1,000 ML BAG ONE (10:04)
[2021-07-14] MEDS ORDERED: PROPOFOL 10 MG/ML 20 ML VIAL IV ONE (10:04)
[2021-07-14] MEDS ORDERED: TRANEXAMIC ACID IN NACL,ISO-OS 1,000 MG/100 ML BAG ONE (10:04)
[2021-07-14] MEDS ORDERED: ROPIVACAINE 5 MG/ML 30 ML VIAL ONE (10:04)
[2021-07-14] MEDS ORDERED: PHENYLEPHRINE-0.9% NACL SYG 1,000 MCG/10 ML SYRINGE ONE (10:04)
[2021-07-14] MEDS ORDERED: MIDAZOLAM 2 MG/2 ML VIAL ONE (10:04)
[2021-07-14] MEDS ORDERED: NA PHOS,M-B/NA PHOS,DI-BA 133 ML ENEMA RECTAL PRN (10:07)
[2021-07-14] MEDS ORDERED: MAGNESIUM HYDROXIDE 2,400 MG/10 ML CUP PO PRN (10:07)
[2021-07-14] MEDS ORDERED: ACETAMINOPHEN TAB 325 MG TAB PO PRN (10:07)
[2021-07-14] MEDS ORDERED: HYDROmorphone 0.5 MG/0.5 ML SYRINGE IVP PRN ×3 (10:07)
[2021-07-14] MEDS ORDERED: NALOXONE 0.4 MG/ML 1 ML VIAL IV PRN (10:07)
[2021-07-14] MEDS ORDERED: bisacodyL 10 MG SUPP RECTAL PRN (10:07)
[2021-07-14] MEDS ORDERED: traMADol 50 MG TAB PO PRN (10:07)
[2021-07-14] MEDS: HYDROmorphone 0.5 MG/0.5 ML SYRINGE IVP PRN ×3 (11:56→14:51)
[2021-07-14] MEDS ORDERED: KETOROLAC 15 MG/ML 1 ML VIAL IVP ONE (13:24)
--- NOTE | 2021-07-14 14:44 | OP ---
OPERATIVE REPORT DATE OF PROCEDURE: 07/14/2021. SURGEON: Darrius Wan MD. STACKER TENDER: Fabrice WARE. PREOP DIAGNOSIS: Left knee osteoarthrosis. POSTOP DIAGNOSIS: Left knee osteoarthrosis. OPERATION: Left total knee arthroplasty. ANESTHESIA: Spinal with sedation. ESTIMATED BLOOD LOSS: 100 mL. TOURNIQUET: Tourniquet time was 43 minutes at 250 mmHg. COMPLICATIONS: None apparent. DRAINS: None. DISPOSITION: Postanesthesia care. INDICATIONS: Cassidy is an 81-year-old female with longstanding history of left knee pain. History and physical examination are consistent with advanced left knee osteoarthrosis. She has been through significant nonoperative management up to this point. Further treatment options were discussed and she has decided to go forward with a left total knee arthroplasty. Risks of procedure were discussed with her in detail. These risks include, but are not limited to risk of infection, nerve damage, bleeding, pain, and a small risk of deep vein thrombosis which could lead to fatal pulmonary embolism. There is also risk of loosening of the implant which could require revision operation. The patient understands these risks. All of her questions were answered to her satisfaction. Appropriate informed consent was obtained. DESCRIPTION OF PROCEDURE: The patient identified in the preoperative holding area. Surgical sites marked by both the patient and myself. Given 2 grams of Ancef IV for prophylactic purposes. He was then transferred to the operative suite. She was placed supine on the operative table. Spinal anesthetic was then administered and dosed per the anesthesia department without apparent complication. Examination under anesthesia was then performed. The patient was 2-3 degrees shy of full extension. She had 100 degrees of flexion. The medial collateral ligament, lateral collateral ligament, posterior cruciate ligaments were stable. Tourniquet was then placed high on the left upper thigh well-padded in preparation for surgery. The patient's left lower extremity was then prepped and draped in usual sterile fashion. Standard surgical pause undertaken to ensure that we were operating on the correct site and that appropriate preoperative antibiotics were given. All staff in room in agreement and we proceeded. The outlines of the patella were marked with a surgical pen. A planned 12 cm vertical incision centered over the patella was marked with a surgical pen. Leg was then exsanguinated with an Esmarch dressing. The knee was then flexed and the tourniquet inflated to 250 mmHg. The total tourniquet time for the procedure was 43 minutes. Incision was then made with a 10 blade scalpel. Dissection was carried down sharply overlying fascia. Great care was taken to minimize the skin flaps. The knee was then exposed using a standard medial parapatellar approach. A small cuff of quadriceps tendon was then left for suturing. She was in a bit of varus preoperatively. A standard medial release was then made. Superficial medial collateral ligament was dissected off the bone around the posterior aspect of the proximal tibia. The medial meniscus was then excised as well. The lateral meniscus was also released anteriorly. The leg was then externally rotated. The patella was everted. The knee was flexed. The retractors then placed to protect the collateral ligaments. I then proceeded to remove the infrapatellar fat pad. This was excised sharply tangentially with fibers of the patellar tendon. I then proceeded to remove the peripheral osteophytes. This was done with a rongeur. I then proceeded with the distal femoral resection. She did have near full extension. A planned 9 mm resection was then done. The femoral canal then entered in the midline of the femur approximately 10 mm anterior to the origin of posterior cruciate ligament. The mckinley was then advanced down the center femur and placed intramedullary. Based on the preoperative radiographs, the angle between the anatomic and mechanical axis of the femur was approximately 4-5 degrees. The valgus angle of the distal femoral cutting guide was then set at 4 degrees for the left knee. The distal femoral cutting guide was then advanced over the intramedullary mckinley. This was seated firmly against the femur. I then as mentioned planned to take 9 mm off the distal femur. The cutting block was then secured onto the femur with pins. The jig was then removed. The distal femoral cut was made through the slot of the block. The pins were then removed. The distal femoral cutting block was removed. The accuracy of the distal femoral cuts was checked with 2 flat bars. I then proceeded with femoral sizing. The posterior referencing sizing guide was held firmly against the resected distal surface of the femur. The posterior condyles were resting on the posterior plane of the guide. The sizing stylus then placed on the anterior femur. The size was measured as a size 8. I then assessed for femoral rotation. The plan was for 3 degrees of external rotation. Three degrees of external rotation was placed onto the jig. These holes were then marked. I then confirmed the rotation by 3 separate methods. This was done using epicondylar axis as well as Whitesides line and posterior referencing. It was deemed that the external rotation was proper. I then went forward placing the femoral cutting block. This was placed over the previously placed pin holes. The Leon wing was then placed on the anterior slots to ensure that we would not notch the anterior femur with the anterior femoral cut. I then proceeded with the anterior femoral cut. This was flush with the anterior cortex of the femur. The posterior cuts were then made followed by the anterior chamfer cut, then the posterior chamfer cut. The cutting block was then removed. Throughout the resection, the collateral ligaments were protected with retractors. I then placed a trial size 8 femur. It was slightly wide, but the narrow fit very nicely medial-lateral and fit flush with the distal end of the femur. The drill holes were then made. I then proceed with a tibial cut. I planned for cruciate retaining knee. Guide was placed and set for varus valgus and for slope. The height was set for approximate 2 mm resection from the medial tibial plateau which was the lower side. I was happy with the alignment and the amount of resection. The cutting block was then pinned to the proximal tibia. The alignment mckinley was removed. Proximal tibia was resected with a reciprocating saw. Again, this was done with retractors protecting the collateral ligaments as well as the posterior cruciate ligament. I then proceeded to evaluate the flexion extension gaps. A 10 mm block was then placed. The flexion and extension gaps were equal. I then proceeded with the resection of posterior osteophytes. She had very minimal posterior osteophytes. This was done using a curved osteotome. This resected the posterior osteophytes and posterior capsule stripping was done off the posterior aspect of the femur. The osteophytes were then removed. I then proceed to resection of the patella. The thickness of the patella was measured using the caliper. The thickness was 22 mm. Thickness of the anticipated patellar dome was taken into account. The resection was then performed and confirmed to be equal in 4 quadrants using a caliper. Approximately 14 mm of bone remained after resection. A 29 x 8 standard patellar trial was then placed. The holes drilled. The trial was then placed. I then proceeded with sizing the tibial plate. A size D tibial plate fit very nicely. I then placed the trial femur in the tibial tray and patellar button. A 10 mm trial tibial insert was also placed. The components fit very nicely. She had full extension and flexion. The extension and flexion gaps were equal and stable to both varus and valgus stress. The patella tracked appropriately. The tibial tray rotation was then marked with a Bovie. This was externally rotated properly. I then proceed with tibial preparation. I first drilled the femoral holes, removed femoral component. The tibial tray was then set for proper external rotation as well as mediolateral placement onto the tibia. It was then pinned into place. I then proceeded with punching the keel. I then decided to proceed with cementing of all of our components. The knee was thoroughly irrigated with sterile saline solution via pulse lavage. The lateral geniculate artery was identified and cauterized. All blood was removed from the bone of the tibia femur and patella was pulse lavaged. I then proceeded with cementing. Two packs of antibiotic bone cement were prepared on the back table by the nursing surgical services director. I then proceed with cementing the tibia first. Cement was impacted in the keel as well as deeply seated in the bone. A second coat of cement was then placed. The tibia was then impacted into place. Excess cement was removed with Felisa's and jokers. I then proceeded with cementing of the femoral component. The femoral component was also cemented using standard technique. Excess cement was removed. A 10 mm trial insert was then placed into the knee. It was brought in full extension with a constant axial load placed until the cement had hardened. The patellar component was then cemented. This was held firmly with a compressive device until the cement had dried. When the cement had dried, the knee was taken out of extension. All excess cement was removed from around the prosthesis. I then trialed the knee with a 10 mm insert. The flexion and extension gaps were appropriate. The knee was stable. It came into full extension. I decided to go forward with a 10 mm medial congruent cross-linked cruciate- retaining tibial insert. Polyethylene was then placed on the tibial tray and locked into place. The knee was then reduced. The knee was again further irrigated with sterile saline solution with antibiotic added. The tourniquet was then deflated. Total tourniquet time for the procedure was 43 minutes at 250 mmHg. Final components were Abril Persona size 8 narrow cruciate-retaining femoral component, a size D tibial tray, a 10 mm medial congruent cruciate-retaining polyethylene insert, and a 29 x 8 mm patella. I then proceeded with closure. Again, the knee was thoroughly irrigated. The quadriceps tendon and the medial retinaculum were reapproximated with #2 Ethibond suture. The extensor mechanism was then closed with a running #2 Quill suture. Subcutaneous tissues were closed with 2-0 Vicryl interrupted suture. The skin was closed with a running 3-0 Quill suture. Dermabond was applied to the incision. Sterile compressive dressings were applied. All sponge and needle counts were deemed correct prior to closure. The patient tolerated procedure without apparent complication. She was transferred to the recovery room in stable condition. MMODL / IJN: [id number] /
--- NOTE | 2021-07-14 16:25 | XR ---
EXAMINATION TYPE: XR knee limited LT DATE OF EXAM: 07/14/2021 COMPARISON: NONE INDICATION: Postoperative TECHNIQUE: 2 views of the left kidney FINDINGS: Status post left total knee arthroplasty. No gross hardware complication. Acute postoperative changes with soft tissue swelling and gas. IMPRESSION: As above.
[2021-07-14] MEDS: HYDROcodone/APAP 5-325MG 1 EACH TAB PO PRN ×2 (16:53→23:56)
[2021-07-14] MEDS: LACTATED RINGERS 1,000 ML IV SCH (16:58)
--- NOTE | 2021-07-14 17:25 | P.ANPRN ---
Procedure Note - Anesthesia - Nerve Block Performed Left Adductor Canal Time Out Performed: Yes (:) Date of Procedure: 07/14/21 Procedure Start Time: Procedure Stop Time: Location of Patient: PreOp Indication: Acute Post-Operative Pain, Requested by Surgeon (Dr Wan) Sedation Type: Sedate with meaningful contact maintained Preparation: Sterile Prep, Sterile Dressing Position: Supine Catheter: Indwelling Needle Types: Pajunk Needle Gauge: 21 Ultrasound used to visualize needle placement: Yes Ultrasound used to observe medication spread: Yes Injectate: 0.5% Ropivacaine (see comment for volume) (15cc) Blood Aspirated: No Pain Paresthesia on Injection Noted: No Resistance on Injection: Normal Image Stored and Saved: Yes Events: Uneventful and Well Tolerated
--- NOTE | 2021-07-14 17:26 | P.ANPRN ---
Procedure Note - Anesthesia - Nerve Block Performed Left iPack Time Out Performed: Yes Date of Procedure: 07/14/21 Procedure Start Time: : Procedure Stop Time: : Location of Patient: PreOp Indication: Acute Post-Operative Pain, Requested by Surgeon (Dr Wan) Sedation Type: Sedate with meaningful contact maintained Preparation: Sterile Prep Position: Supine Catheter: None Needle Types: Pajunk Needle Gauge: 21 Ultrasound used to visualize needle placement: Yes Ultrasound used to observe medication spread: Yes Injectate: 0.5% Ropivacaine (see comment for volume) (15cc) Blood Aspirated: No Pain Paresthesia on Injection Noted: No Resistance on Injection: Normal Image Stored and Saved: Yes Events: Uneventful and Well Tolerated
[2021-07-14] MEDS: SENNOSIDES-DOCUSATE SODIUM 1 EACH TAB PO SCH (19:49)
[2021-07-14] MEDS: ASPIRIN 81 MG PO SCH (19:50)
[2021-07-15] MEDS: LACTATED RINGERS 1,000 ML IV SCH ×3 (01:49→14:12)
[2021-07-15] MEDS: HYDROcodone/APAP 10-325MG 1 EACH TAB PO PRN ×3 (05:47→18:39)
--- NOTE | 2021-07-15 07:30 | P.PN ---
Progress Note - Text The patient is status post left adductor canal catheter placement. The catheter was placed for postoperative pain control, status post total left knee arthroplasty. Ropivacaine 0.2% is infusing at 10 mLs per hour. The patient has no complaints of left lower extremity numbness or weakness. Patient's VAS score is 3 -10. Patient states her primary knee pain is posterior. Assessment: Patient's adductor canal catheter is in place and working appropriately. Plan: continue infusion and adjust it as needed.
[2021-07-15 08:50] LABS: Basophils # (A) 0.02 X 10*3/uL (0.00-0.10); Basophils % (A) 0.2 %; Eosinophils # (A) 0 X 10*3/uL (0.04-0.35); Eosinophils % (A) 0 %; HCT 36.3 % (37.2-46.3); HGB 11.4 g/dL (12.0-15.0); Immature Grans, Automated 0.5 %; Lymphocytes # (A) 1.17 X 10*3/uL (0.90-5.00); Lymphocytes % (A) 10.6 %; MCH 29.1 pg (27.0-32.0); MCHC 31.4 g/dL (32.0-37.0); MCV 92.6 fL (80.0-97.0); Mean Platelet Volume 11.3 fL (9.5-12.2); Monocytes # (A) 1.44 X 10*3/uL (0.20-1.00); NRBC Per 100 WBC 0 /100 WBCS (0.0-0.0); Neutrophils # (A) 8.36 X 10*3/uL (1.80-7.70); Neutrophils % (A) 75.7 %; Platelet Count 237 X 10*3/uL (140-440); RBC 3.92 X 10*6/uL (4.10-5.20); RDW 13.1 % (11.5-14.5); WBC 11.04 X 10*3/uL (4.50-10.00)
[2021-07-15] MEDS: ASPIRIN 81 MG PO SCH ×2 (09:54→20:31)
--- NOTE | 2021-07-15 10:39 | P.PN ---
Subjective Progress Note Date: 07/15/21 Principal diagnosis: Left TKA Patient is seen at bedside this morning. She is postop day #1 from left total knee arthroplasty. She has pain at the surgical site as expected but denies any new complaints. She denies numbness, tingling or calf pain. Review of systems is negative for fever, chills, chest pain, shortness of breath or other Objective - Vital Signs Vital signs: Vital Signs Temp 97.9 F 07/15/21 05:45 Pulse 58 L 07/15/21 05:45 Resp 18 07/15/21 05:45 BP 149/81 07/15/21 05:45 Pulse Ox 95 07/15/21 05:45 FiO2 Intake & Output 07/14/21 07/15/21 07/15/21 18:59 06:59 18:59 Intake Total 500 Balance 500 Weight 76.1 kg Intake: IV 300 Intake, IV Titration 200 Amount Lactated Ringers 1,000 ml 200 @ 100 mls/hr IV .Q10H GOPAL Rx#:[id number] Other: # Voids 2 1 - Exam Inspection reveals a benign surgical wound. There is no active bleeding or drainage. Neurovascular status is intact throughout the lower extremity with motor and sensation fully intact. Calf is soft and nontender. 2+ dorsalis pedis pulse and less than 2 second cap refill is present. - Constitutional General appearance: Present: no acute distress - Labs CBC & Chem 7: 07/15/21 05:18 Labs: Abnormal Lab Results - Last 24 Hours (Table) 07/15/21 Range/Units 05:18 WBC 11.04 H (4.50-10.00) X 10*3/uL RBC 3.92 L (4.10-5.20) X 10*6/uL Hgb 11.4 L (12.0-15.0) g/dL Hct 36.3 L (37.2-46.3) % MCHC 31.4 L (32.0-37.0) g/dL Immature Gran # 0.05 H (0.00-0.04) X 10*3/uL Neutrophils # 8.36 H (1.80-7.70) X 10*3/uL Monocytes # 1.44 H (0.20-1.00) X 10*3/uL Eosinophils # 0 L (0.04-0.35) X 10*3/uL Assessment and Plan (1) Status post total right knee replacement Narrative/Plan: She will continue with routine postop orthopedic protocol including pain management, wound care, PT, DVT prophylaxis and medical management. Expect that she will transfer to home tomorrow Current Visit: No Status: Acute Priority: Medium Code(s): Z96.651 - PRESENCE OF RIGHT ARTIFICIAL KNEE JOINT SNOMED Code(s): 0537028926325 Time with Patient: Less than 30
[2021-07-15] MEDS ORDERED: MULTIVITAMINS, THERA 1 EACH TAB PO SCH (12:00)
[2021-07-15] MEDS: diazePAM 5 MG TAB PO PRN (15:18)
[2021-07-15] MEDS: VERAPAMIL SR 180 MG TABLET.ER PO SCH (20:32)
[2021-07-15] MEDS: SENNOSIDES-DOCUSATE SODIUM 1 EACH TAB PO SCH (20:32)
[2021-07-15] MEDS ORDERED: QUEtiapine 25 MG TAB PO SCH (21:00)
[2021-07-16] MEDS: HYDROcodone/APAP 10-325MG 1 EACH TAB PO PRN ×2 (01:22→08:41)
[2021-07-16] MEDS: LACTATED RINGERS 1,000 ML IV SCH (03:17)
[2021-07-16] MEDS: diazePAM 5 MG TAB PO PRN (05:45)
[2021-07-16 08:04] VITALS: BP 122/75; PULSE 79; RESP 17; TEMP 97.7
[2021-07-16] MEDS: VERAPAMIL SR 180 MG TABLET.ER PO SCH (08:38)
[2021-07-16] MEDS: ASPIRIN 81 MG PO SCH (08:38)
[2021-07-16] MEDS ORDERED: PRAVASTATIN SODIUM 80 MG TAB PO SCH (09:00)
[2021-07-16] MEDS ORDERED: ESCITALOPRAM 10 MG TAB PO SCH (09:00)
--- NOTE | 2021-07-16 10:25 | P.DS ---
Providers Date of admission: 07/15/21 13:01 Expected date of discharge: 07/16/21 Attending physician: Darrius Wan Consults: 07/14/21 10:07 Consult Physician Routine Consulting Provider: David Ely Consult Reason/Comments: post op medical management Do you want consulting provider notified?: Yes Primary care physician: Junior Stephens - Discharge Diagnosis(es) (1) S/P total knee arthroplasty Current Visit: Yes Status: Acute (2) Osteoarthritis of left knee Current Visit: Yes Status: Acute (3) Left knee pain Current Visit: Yes Status: Acute (4) Hyperlipidemia Current Visit: Yes Status: Acute (5) Depression Current Visit: Yes Status: Acute (6) Hypertension Current Visit: No Status: Acute Hospital Course: This is a pleasant 81-year-old female who presented with left knee osteoarthrosis who failed outpatient conservative therapy. She was admitted for a left total knee arthroplasty. The patient tolerated the procedure well and did well postoperatively. She has been elevating and applying ice over her left knee. She has been able to ambulate with assistance of a walker. She has a walker at home. She states her pain has been controlled with oral [place] and utilization of an On-Q pain pump. She feels she is ready for discharge today. Condition on day of discharge stable. Patient will be discharged home. Patient was cleared preoperatively for surgery by Dr. Junior Stephens. Patient currently denies any nausea, vomiting, fever, or chills. Patient is eating and voiding freely without difficulty. Surgical site over the left knee remains clean, dry, and intact. Patient may shower without a dressing intact over the left knee if the surgical site remains clean, dry, and intact with the next 72 hours. Patient may continue to weight-bear as tolerated on the left lower extremity. She may utilize a walker to aid in ambulation as needed. She is encouraged to apply ice of the left knee and elevate for comfort support as needed. Patient will plan to follow with Dr. Darrius Wan at [facility] on 07/25/2021 at 1:50 PM as scheduled. MAPS has been previously reviewed. An "Opiod Start Talking" Form has been signed and placed in the patient's chart. A prescription has been written for hydrocodone 7.5 mg/325 mg 1-2 tabs every 6 hours as needed for pain, dispense #42. Patient is also given prescription for aspirin 81 mg 1 tab twice a day, dispensed #60 and Colace 100 mg 1 tab twice a day as needed for constipation, dispensed #60. Medications have been sent to the [facility] located within the [facility] per request of the patient. Patient's other medical diagnoses include hyperlipidemia, hypertension, and depression. Patient's On-Q pain pump will be managed by anesthesia. Physical Exam on day of discharge: Status post surgical day number 2 Patient is awake, alert, and oriented 3 Vital signs stable Good chest excursion with deep inspiration and expiration Abdomen soft nontender No signs or symptoms of DVT; no calf pain; calves are soft bilaterally Dressing over the left knee is clean, dry, and intact; no erythema, purulence, or signs of infection Patient has full foot and ankle motion without difficulty bilateral lower extremities ALBINA hose stocking over the right lower extremity has been removed during physical examination Dorsiflexion, plantar flexion, and extensor hallucis longus positive sustained bilaterally Neurovascularly intact bilateral lower extremities On-Q pain pump intact Procedures: Left total knee arthroplasty Patient Condition at Discharge: Stable Plan - Discharge Summary Discharge Rx Participant: Yes New Discharge Prescriptions: New Aspirin [Adult Low Dose Aspirin EC] 81 mg PO BID #60 tab HYDROcodone/APAP 7.5-325MG [[place] 7.5-325] 1 - 2 each PO Q6HR PRN #42 tab PRN Reason: Pain Docusate [Colace] 100 mg PO BID #60 capsule No Action Aspirin 81 mg PO DAILY Verapamil HCl [Verapamil ER] 180 mg PO BID Pravastatin Sodium [Pravachol] 80 mg PO DAILY Vitamin D3 (Unknown Dose) 1 tab PO DAILY Escitalopram [Lexapro] 10 mg PO QAM Sulfamethoxazole (Unknown Dose 1 tab PO Q12H Discharge Medication List Aspirin 81 mg PO DAILY 02/18/14 [History] Pravastatin Sodium [Pravachol] 80 mg PO DAILY 02/18/14 [History] Verapamil HCl [Verapamil ER] 180 mg PO BID 02/18/14 [History] Escitalopram [Lexapro] 10 mg PO QAM 07/12/21 [History] Sulfamethoxazole (Unknown Dose 1 tab PO Q12H 07/12/21 [History] Vitamin D3 (Unknown Dose) 1 tab PO DAILY 07/12/21 [History] Aspirin [Adult Low Dose Aspirin EC] 81 mg PO BID #60 tab 07/15/21 [Rx] Docusate [Colace] 100 mg PO BID #60 capsule 07/15/21 [Rx] HYDROcodone/APAP 7.5-325MG [[place] 7.5-325] 1 - 2 each PO Q6HR PRN #42 tab 07/15/21 [Rx] Follow up Appointment(s)/Referral(s): [facility], [NON-STAFF] - As Needed Darrius Wan MD [STAFF PHYSICIAN] - 07/25/21 1:50 pm Activity/Diet/Wound Care/Special Instructions: 1. Weight bear as tolerated on the left lower extremity 2. May shower without a dressing intact over the left knee if surgical site remains clean, dry, and intact over the next 72 hours 3. Keep surgical site at the left knee clean and dry 4. Patient may use a walker to aid in ambulation as needed 5. Patient is encouraged to elevate and apply ice over the left knee for comfort support as needed 6. Take medication as prescribed 7. Patient will follow up with Dr. Wan at [facility] as scheduled Discharge Disposition: HOME SELF-CARE
--- NOTE | 2021-07-17 13:56 | P.PN ---
Subjective Progress Note Date: 07/16/21 81-year-old female patient with severe left knee osteoarthritis, failing outpatient conservative therapy, admitted for elective left total knee arthroplasty Patient is seen status post left total knee arthroplasty; POD # 2 Objective - Vital Signs Vital signs: Vital Signs Temp 97.7 F 07/16/21 07:13 Pulse 79 07/16/21 07:13 Resp 17 07/16/21 07:13 BP 122/75 07/16/21 07:13 Pulse Ox 91 L 07/16/21 07:13 FiO2 Intake & Output 07/15/21 07/16/21 07/16/21 18:59 06:59 18:59 Other: Voiding Method Toilet # Voids 4 3 - Exam PHYSICAL EXAMINATION: GENERAL: The patient is alert and oriented x3, not in any acute distress. Well developed, well nourished. HEENT: Pupils are round and equally reacting to light. EOMI. No scleral icterus. No conjunctival pallor. Normocephalic, atraumatic. No pharyngeal erythema. No thyromegaly. CARDIOVASCULAR: S1 and S2 present. No murmurs, rubs, or gallops. PULMONARY: Chest is clear to auscultation, no wheezing or crackles. ABDOMEN: Soft, nontender, nondistended, normoactive bowel sounds. No palpable organomegaly. MUSCULOSKELETAL: No joint swelling or deformity. EXTREMITIES: No cyanosis, clubbing, or pedal edema. NEUROLOGICAL: Gross neurological examination did not reveal any focal deficits. SKIN: No rashes. - Labs CBC & Chem 7: 07/15/21 05:18 Assessment and Plan Assessment: 1. Severe osteoarthritis left knee; failing outpatient conservative treatment - Status post left total knee arthroplasty; POD #1 - Your management 2. Hypertension; verapamil 180 mg twice a day 3. Hyperlipidemia; Pravachol 80 mg daily 4. Depression; Lexapro 10 mg daily DVT prophylaxis; per discretion of primary team CODE STATUS; full code
--- NOTE | 2021-07-17 13:56 | P.CONS ---
History of Present Illness - Reason for Consult Consult date: 07/15/21 Medical management - Chief Complaint Severe osteoarthritis left knee - History of Present Illness 81-year-old female patient with severe left knee osteoarthritis, failing outpatient conservative therapy, admitted for elective left total knee arthroplasty Patient is seen status post left total knee arthroplasty; POD #1 Review of Systems REVIEW OF SYSTEMS: CONSTITUTIONAL: No fever, no malaise, no fatigue. HEENT: No recent visual problems or hearing problems. Denied any sore throat. CARDIOVASCULAR: No chest pain, orthopnea, PND, no palpitations, no syncope. PULMONARY: No shortness of breath, no cough, no hemoptysis. GASTROINTESTINAL: No diarrhea, no nausea, no vomiting, no abdominal pain. NEUROLOGICAL: No headaches, no weakness, no numbness. HEMATOLOGICAL: Denies any bleeding or petechiae. GENITOURINARY: Denies any burning micturition, frequency, or urgency. MUSCULOSKELETAL/RHEUMATOLOGICAL: Denies any joint pain, swelling, or any muscle pain. ENDOCRINE: Denies any polyuria or polydipsia. The rest of the 14-point review of systems is negative. Past Medical History Past Medical History: Chest Pain / Angina, GERD/Reflux, Hyperlipidemia, Hypertension, Osteoarthritis (OA) Additional Past Medical History / Comment(s): Hiatal hernia. " said I may have a mild bladder infection, on antibiotics." History of Any Multi-Drug Resistant Organisms: None Reported Past Surgical History: Cholecystectomy, Joint Replacement, Orthopedic Surgery, Tonsillectomy Additional Past Surgical History / Comment(s): Left wrist ganglion cyst removed, right knee replacement, bilateral cataract surgery. Past Anesthesia/Blood Transfusion Reactions: Motion Sickness, Postoperative Nausea & Vomiting (PONV) Additional Past Anesthesia/Blood Transfusion Reaction / Comm: Very mild PONV. Past Psychological History: Depression Smoking Status: Never smoker Past Alcohol Use History: Occasional Past Drug Use History: None Reported - Past Family History Mother Family Medical History: Cancer Medications and Allergies Home Medications Medication Instructions Recorded Confirmed Type Aspirin 81 mg PO DAILY 02/18/14 07/12/21 History Pravastatin Sodium [Pravachol] 80 mg PO DAILY 02/18/14 07/14/21 History Verapamil HCl [Verapamil ER] 180 mg PO BID 02/18/14 07/12/21 History Escitalopram [Lexapro] 10 mg PO QAM 07/12/21 07/12/21 History Sulfamethoxazole (Unknown Dose 1 tab PO Q12H 07/12/21 07/12/21 History Vitamin D3 (Unknown Dose) 1 tab PO DAILY 07/12/21 07/14/21 History Aspirin [Adult Low Dose Aspirin EC] 81 mg PO BID #60 tab 07/15/21 Rx Docusate [Colace] 100 mg PO BID #60 capsule 07/15/21 Rx HYDROcodone/APAP 7.5-325MG [[place] 1 - 2 each PO Q6HR PRN #42 tab 07/15/21 Rx 7.5-325] Allergies Allergy/AdvReac Type Severity Reaction Status Date / Time No Known Allergies Allergy Verified 07/14/21 08:36 Physical Exam Vitals: Vital Signs Temp Pulse Resp BP Pulse Ox 07/15/21 05:45 97.9 F 58 L 18 149/81 95 07/15/21 00:58 98.5 F 72 15 120/76 92 L 07/14/21 19:34 98.9 F 66 18 114/71 95 07/14/21 16:38 97.7 F 66 16 109/72 93 L Intake and Output 07/14/21 07/15/21 07/15/21 22:59 06:59 14:59 Intake Total 200 Balance 200 Intake: Intake, IV Titration 200 Amount Lactated Ringers 1,000 ml 200 @ 100 mls/hr IV .Q10H [facility] Rx#:[id number] Other: # Voids 2 1 Weight 76.1 kg PHYSICAL EXAMINATION: GENERAL: The patient is alert and oriented x3, not in any acute distress. Well developed, well nourished. HEENT: Pupils are round and equally reacting to light. EOMI. No scleral icterus. No conjunctival pallor. Normocephalic, atraumatic. No pharyngeal erythema. No thyromegaly. CARDIOVASCULAR: S1 and S2 present. No murmurs, rubs, or gallops. PULMONARY: Chest is clear to auscultation, no wheezing or crackles. ABDOMEN: Soft, nontender, nondistended, normoactive bowel sounds. No palpable o rganomegaly. MUSCULOSKELETAL: No joint swelling or deformity. EXTREMITIES: No cyanosis, clubbing, or pedal edema. NEUROLOGICAL: Gross neurological examination did not reveal any focal deficits. SKIN: No rashes. Results CBC & Chem 7: 07/15/21 05:18 Labs: Abnormal Lab Results - Last 24 Hours (Table) 07/15/21 Range/Units 05:18 WBC 11.04 H (4.50-10.00) X 10*3/uL RBC 3.92 L (4.10-5.20) X 10*6/uL Hgb 11.4 L (12.0-15.0) g/dL Hct 36.3 L (37.2-46.3) % MCHC 31.4 L (32.0-37.0) g/dL Immature Gran # 0.05 H (0.00-0.04) X 10*3/uL Neutrophils # 8.36 H (1.80-7.70) X 10*3/uL Monocytes # 1.44 H (0.20-1.00) X 10*3/uL Eosinophils # 0 L (0.04-0.35) X 10*3/uL Assessment and Plan Assessment: 1. Severe osteoarthritis left knee; failing outpatient conservative treatment - Status post left total knee arthroplasty; POD #1 - Your management 2. Hypertension; verapamil 180 mg twice a day 3. Hyperlipidemia; Pravachol 80 mg daily 4. Depression; Lexapro 10 mg daily DVT prophylaxis; per discretion of primary team CODE STATUS; full code
== END 2021-07-16 11:40 | disposition home or self-care (01) | DRG 470 ==
LOC: OR 07:51 → 4SSUR 15:48 → OR 07-15 13:01
PROVIDERS: ADMIT Orthopaedic Surgery Sports Medicine; ATTEND Orthopaedic Surgery Sports Medicine
PROC: 0JHP3VZ Insertion of Infusion Pump into Left Lower Leg Subcutaneous Tissue and Fascia, Percutaneous Approach (ICD-10-PCS; principal; 2021-07-14 09:30)
PROC: 0SRD0J9 Replacement of Left Knee Joint with Synthetic Substitute, Cemented, Open Approach (ICD-10-PCS; principal; 2021-07-14 09:30)
PROC: 3E0T3BZ Introduction of Anesthetic Agent into Peripheral Nerves and Plexi, Percutaneous Approach (ICD-10-PCS; principal; 2021-07-14 09:30)
DX: M17.12 Unilateral primary osteoarthritis, left knee (principal); E78.5 Hyperlipidemia, unspecified; F32.A Depression, unspecified; I10 Essential (primary) hypertension; Z79.82 Long term (current) use of aspirin; Z79.899 Other long term (current) drug therapy; Z96.651 Presence of right artificial knee joint; Z90.49 Acquired absence of other specified parts of digestive tract; Z87.19 Personal history of other diseases of the digestive system; Z98.42 Cataract extraction status, left eye; Z98.41 Cataract extraction status, right eye
CPT/HCPCS: 64448; 64999; 76942; 85025; 88300